=== PATIENT | male | born 1985 | race Caucasian/White ===

== ENCOUNTER 2022-11-21 17:53 | Emergency (ER) | payer OTHER ==
[2022-11-21] MEDS ORDERED: Lidocaine 1% 10 ML MDV INJECT ONE (18:03)
[2022-11-21] MEDS ORDERED: Diphtheria,Pertussis(Acell),Tetanus Vaccine 0.5 ML Syringe IM ONE (18:18)
== END 2022-11-21 18:35 | disposition home or self-care (01) ==
LOC: VM.ED 17:53
DX: S61.012A Laceration without foreign body of left thumb without damage to nail, initial encounter (principal); I10 Essential (primary) hypertension; Z23 Encounter for immunization; Z72.0 Tobacco use; Z79.899 Other long term (current) drug therapy; Z88.1 Allergy status to other antibiotic agents; Z88.8 Allergy status to other drugs, medicaments and biological substances; W26.8XXA Contact with other sharp object(s), not elsewhere classified, initial encounter; Y92.89 Other specified places as the place of occurrence of the external cause; Y99.0 Civilian activity done for income or pay
CPT/HCPCS: 12001; 90471; 90715; 99282-25; 99283; J3490

== ENCOUNTER 2023-04-30 14:09 | Emergency (ER) | payer SELFPAY ==
[2023-04-30] MEDS ORDERED: Ketorolac 30 MG/ML SDV IM ONE (15:46)
== END 2023-04-30 16:11 | disposition home or self-care (01) ==
LOC: VM.ED 14:09
DX: S16.1XXA Strain of muscle, fascia and tendon at neck level, initial encounter (principal); S00.83XA Contusion of other part of head, initial encounter; F17.210 Nicotine dependence, cigarettes, uncomplicated; I10 Essential (primary) hypertension; Z79.899 Other long term (current) drug therapy; Z88.1 Allergy status to other antibiotic agents; Z88.8 Allergy status to other drugs, medicaments and biological substances; W20.8XXA Other cause of strike by thrown, projected or falling object, initial encounter; Y92.59 Other trade areas as the place of occurrence of the external cause
CPT/HCPCS: 70450; 72125; 96372; 99283; 99284; J1885

== ENCOUNTER 2023-12-08 13:29 | Emergency (ER) | payer OTHER ==
[2023-12-08 14:24] LABS: BASOPHILS PERCENT AUTO 0.3 % (0.2-1.2); EOSINOPHILS ABSOLUTE AUTO 0.2 x10^3/uL (0.0-0.5); HEMATOCRIT 43.2 % (40.0-52.0); HEMOGLOBIN 14.7 g/dL (14.0-18.0); IMMATURE GRAN ABSOLUTE AUTO 0.02 x10^3/uL (0.00-0.07); LYMPHOCYTES ABSOLUTE AUTO 3.5 x10^3/uL (1.0-4.8); MEAN CORPUSCULAR HEMOGLOBIN 27.2 pg (26.0-32.0); MONOCYTES ABSOLUTE AUTO 1.1 x10^3/uL (0.0-0.8); MONOCYTES PERCENT AUTO 7.6 % (2.0-11.0); NEUTROPHILS ABSOLUTE AUTO 10.2 x10^3/uL (1.8-7.7); PLATELET COUNT,PLT 295 x10^3/uL (130-400)
[2023-12-08 14:44] LABS: A/G RATIO 1.26; ALANINE AMINOTRANSFERASE,ALT 28 U/L (16-63); ALBUMIN 4.4 g/dL (3.4-5.0); ALKALINE PHOSPHATASE 108 U/L (46-116); ANION GAP 15.8 mmol/L (5-15); ASPARTATE AMNIOTRANSFERASE,AST 21 U/L (15-37); BILIRUBIN TOTAL 0.8 mg/dL (0.2-1.0); BLOOD UREA NITROGEN,BUN 13 mg/dL (7-18); CALCIUM 10.5 mg/dL (8.5-10.1); CARBON DIOXIDE,CO2 27 mmol/L (21-32); CHLORIDE,CL 103 mmol/L (98-107); ESTIMATED GFR 98 mL/min (>=60); GLUCOSE RANDOM 93 mg/dL (70-99); POTASSIUM,K 3.8 mmol/L (3.5-5.1); PROTEIN TOTAL,TP 7.9 g/dL (6.4-8.2); SODIUM,NA 142 mmol/L (136-145)
[2023-12-08] MEDS: Lactated Ringers 1,000 ML IV ONE (19:45)
[2023-12-09] MEDS: Acetaminophen 500 MG Tab PO ONE (00:06)
== END 2023-12-09 01:45 | disposition home or self-care (01) ==
LOC: VM.ED 13:29
DX: R53.83 Other fatigue (principal)
CPT/HCPCS: 36415; 70450; 80053; 85025; 99284; A9270; J7120

== ENCOUNTER 2023-12-09 13:59 | Emergency (ER) | payer OTHER ==
[2023-12-09 15:23] LABS: BASOPHILS PERCENT AUTO 0.2 % (0.2-1.2); EOSINOPHILS ABSOLUTE AUTO 0.2 x10^3/uL (0.0-0.5); EOSINOPHILS PERCENT AUTO 1.8 % (0.0-4.0); HEMATOCRIT 47.5 % (40.0-52.0); HEMOGLOBIN 15.8 g/dL (14.0-18.0); IMMATURE GRAN ABSOLUTE AUTO 0.01 x10^3/uL (0.00-0.07); LYMPHOCYTES ABSOLUTE AUTO 3.2 x10^3/uL (1.0-4.8); LYMPHOCYTES PERCENT AUTO 36.5 % (25.0-50.0); MEAN CORPUSCULAR HEMOGLOBIN 27.1 pg (26.0-32.0); MEAN CORPUSCULAR HGB CONC 33.3 g/dL (32.0-36.0); MEAN CORPUSCULAR VOLUME 81.6 fL (78.0-93.0); MONOCYTES ABSOLUTE AUTO 0.8 x10^3/uL (0.0-0.8); MONOCYTES PERCENT AUTO 9.1 % (2.0-11.0); NEUTROPHILS ABSOLUTE AUTO 4.6 x10^3/uL (1.8-7.7); NEUTROPHILS PERCENT AUTO 52.3 % (50.0-80.0); PLATELET COUNT,PLT 313 x10^3/uL (130-400); RED BLOOD CELL COUNT 5.82 x10^6/uL (4.5-6.0); WHITE BLOOD CELL COUNT,WBC 8.9 x10^3/uL (4.0-10.0)
[2023-12-09 15:32] LABS: AMPHETAMINES SCREEN, URINE POSITIVE (NEGATIVE); BARBITURATE SCREEN,URINE NEGATIVE (NEGATIVE); BENZODIAZEPINES SCREEN,URINE POSITIVE (NEGATIVE); BUPRENORPHINE SCREEN,URINE NEGATIVE (NEGATIVE); COCAINE METABOLITES,URINE NEGATIVE (NEGATIVE); METHADONE SCREEN, URINE NEGATIVE (NEGATIVE); METHAMPHETAMINE SCREEN, URINE POSITIVE (NEGATIVE); OXYCODONE SCREEN,URINE NEGATIVE (NEGATIVE); PCP SCREEN,URINE NEGATIVE (NEGATIVE); THC SCREEN,URINE 50 NG/ML POSITIVE (NEGATIVE)
[2023-12-09 15:42] LABS: A/G RATIO 1.08; ALANINE AMINOTRANSFERASE,ALT 33 U/L (16-63); ALBUMIN 4.3 g/dL (3.4-5.0); ALKALINE PHOSPHATASE 114 U/L (46-116); ASPARTATE AMNIOTRANSFERASE,AST 28 U/L (15-37); BILIRUBIN TOTAL 0.6 mg/dL (0.2-1.0); BLOOD UREA NITROGEN,BUN 8 mg/dL (7-18); CALCIUM 10.7 mg/dL (8.5-10.1); CARBON DIOXIDE,CO2 32 mmol/L (21-32); CHLORIDE,CL 106 mmol/L (98-107); CREATININE 0.9 mg/dL (0.70-1.30); EST CRCL DRUG DOSING (CG) 119.75 mL/min; GLUCOSE RANDOM 106 mg/dL (70-99); PROTEIN TOTAL,TP 8.3 g/dL (6.4-8.2); SODIUM,NA 145 mmol/L (136-145)
[2023-12-09 15:46] LABS: ESTIMATED GFR 111 mL/min (>=60)
[2023-12-09 15:52] LABS: ETHANOL BLOOD MEDICAL < 3 mg/dL (0-3)
[2023-12-09 15:54] LABS: ACETAMINOPHEN 5 ug/ml (10-30)
== END 2023-12-09 16:25 | disposition other institution (70) ==
LOC: VM.ED 13:59
DX: T42.4X1A Poisoning by benzodiazepines, accidental (unintentional), initial encounter (principal); T42.6X2A Poisoning by other antiepileptic and sedative-hypnotic drugs, intentional self-harm, initial encounter; F32.A Depression, unspecified; F19.20 Other psychoactive substance dependence, uncomplicated; I10 Essential (primary) hypertension; Z88.1 Allergy status to other antibiotic agents; Z88.8 Allergy status to other drugs, medicaments and biological substances; Z79.899 Other long term (current) drug therapy
CPT/HCPCS: 36415; 80053; 80143; 80179; 80305-QW; 80307; 85025; 93005; 99284

== ENCOUNTER 2023-12-10 18:37 | Emergency (ER) | payer OTHER, MEDICAID ==
[2023-12-10] MEDS: Acetaminophen 500 MG Tab PO ONE (21:30)
[2023-12-10] MEDS: Ibuprofen 200 MG Tab PO ONE (21:30)
== END 2023-12-10 21:18 | disposition home or self-care (01) ==
LOC: VM.ED 18:37
DX: S16.1XXA Strain of muscle, fascia and tendon at neck level, initial encounter (principal); S80.212A Abrasion, left knee, initial encounter; S80.211A Abrasion, right knee, initial encounter; M79.631 Pain in right forearm; I10 Essential (primary) hypertension; Z79.899 Other long term (current) drug therapy; Z88.1 Allergy status to other antibiotic agents; Z88.8 Allergy status to other drugs, medicaments and biological substances; W10.9XXA Fall (on) (from) unspecified stairs and steps, initial encounter
CPT/HCPCS: 72125; 73090-RT; 73110-RT; 73130-RT; 73562-RT; 99284

== ENCOUNTER 2024-02-04 19:21 | Emergency (ER) | payer OTHER, MEDICAID ==
[2024-02-04] MEDS: Ketorolac 30 MG/ML SDV IM ONE (20:30)
[2024-02-04] MEDS: Baclofen 10 MG Tab PO ONE (20:36)
== END 2024-02-04 20:46 | disposition home or self-care (01) ==
LOC: VM.ED 19:21
DX: M54.50 Low back pain, unspecified (principal); R50.9 Fever, unspecified; G89.29 Other chronic pain; I10 Essential (primary) hypertension; Z79.899 Other long term (current) drug therapy; Z88.1 Allergy status to other antibiotic agents; Z88.8 Allergy status to other drugs, medicaments and biological substances
CPT/HCPCS: 96372; 99283; A9270; J1885; 99284

== ENCOUNTER 2024-02-13 16:20 | Emergency (ER) | payer OTHER, MEDICAID ==
[2024-02-13] MEDS ORDERED: Sodium Chloride 0.9% 10 ML Syringe FLUSH PRN (16:33)
[2024-02-13] MEDS: HYDROmorphone 0.5 MG/0.5 ML Syringe IVPUSH ONE (16:41)
[2024-02-13] MEDS: Lactated Ringers 1,000 ML IV ONE (16:41)
[2024-02-13 16:46] LABS: BASOPHILS PERCENT AUTO 0.1 % (0.2-1.2); HEMOGLOBIN 14.1 g/dL (14.0-18.0); IMMATURE GRAN ABSOLUTE AUTO 0.04 x10^3/uL (0.00-0.07); LYMPHOCYTES ABSOLUTE AUTO 1.6 x10^3/uL (1.0-4.8); LYMPHOCYTES PERCENT AUTO 11.9 % (25.0-50.0); MEAN CORPUSCULAR HEMOGLOBIN 27.4 pg (26.0-32.0); MEAN CORPUSCULAR HGB CONC 33.6 g/dL (32.0-36.0); MEAN CORPUSCULAR VOLUME 81.6 fL (78.0-93.0); MONOCYTES ABSOLUTE AUTO 0.4 x10^3/uL (0.0-0.8); MONOCYTES PERCENT AUTO 3.2 % (2.0-11.0); NEUTROPHILS ABSOLUTE AUTO 11.5 x10^3/uL (1.8-7.7); NEUTROPHILS PERCENT AUTO 84.5 % (50.0-80.0); PLATELET COUNT,PLT 305 x10^3/uL (130-400); RED BLOOD CELL COUNT 5.15 x10^6/uL (4.5-6.0); WHITE BLOOD CELL COUNT,WBC 13.6 x10^3/uL (4.0-10.0)
[2024-02-13 16:48] VITALS: BP 127/85; PULSE 96
[2024-02-13 17:02] LABS: A/G RATIO 1.21; ALANINE AMINOTRANSFERASE,ALT 22 U/L (16-63); ALKALINE PHOSPHATASE 101 U/L (46-116); ASPARTATE AMNIOTRANSFERASE,AST 13 U/L (15-37); BILIRUBIN TOTAL 0.5 mg/dL (0.2-1.0); BLOOD UREA NITROGEN,BUN 10 mg/dL (7-18); CARBON DIOXIDE,CO2 30 mmol/L (21-32); CHLORIDE,CL 104 mmol/L (98-107); CREATINE KINASE,CK 100 U/L (39-308); CREATININE 1.1 mg/dL (0.70-1.30); GLUCOSE RANDOM 120 mg/dL (70-99); POTASSIUM,K 4.2 mmol/L (3.5-5.1); PROTEIN TOTAL,TP 7.3 g/dL (6.4-8.2); SODIUM,NA 143 mmol/L (136-145)
[2024-02-13 17:05] LABS: ANION GAP 13.2 mmol/L (5-15); C-REACTIVE PROTEIN < 0.50 mg/dL (<=0.50); ESTIMATED GFR 87 mL/min (>=60)
[2024-02-13] MEDS: Ketorolac 15 MG/ML SDV IVPUSH ONE (17:18)
[2024-02-13] MEDS: Take Home: Cyclobenzaprine 10 MG Tab, 4 Tab Pack PO ONE (17:19)
== END 2024-02-13 17:30 | disposition home or self-care (01) ==
LOC: VM.ED 16:20
DX: M54.6 Pain in thoracic spine (principal); G89.29 Other chronic pain; I10 Essential (primary) hypertension; F17.210 Nicotine dependence, cigarettes, uncomplicated; Z79.899 Other long term (current) drug therapy; Z88.1 Allergy status to other antibiotic agents; Z88.8 Allergy status to other drugs, medicaments and biological substances
CPT/HCPCS: 36415; 80053; 82550; 85025; 86140; 96374; 96375; 99284; A9270; J1170; J1885; J3360; J7120

== ENCOUNTER 2024-02-14 16:46 | Emergency (ER) | payer OTHER, MEDICAID ==
[2024-02-14] MEDS: LORazepam 2 MG/ML SDV IM ONE (18:25)
[2024-02-14] MEDS: Ketorolac 30 MG/ML SDV IM ONE (18:26)
== END 2024-02-14 19:23 | disposition home or self-care (01) ==
LOC: VM.ED 16:46
DX: G89.29 Other chronic pain (principal); M54.50 Low back pain, unspecified; I10 Essential (primary) hypertension; Z88.8 Allergy status to other drugs, medicaments and biological substances; Z79.899 Other long term (current) drug therapy
CPT/HCPCS: 96372; 99283; 99284; J1885; J2060

== ENCOUNTER 2024-02-19 18:35 | Emergency (ER) | payer OTHER, MEDICAID ==
[2024-02-19 19:21] LABS: BASOPHILS PERCENT AUTO 0.2 % (0.2-1.2); EOSINOPHILS ABSOLUTE AUTO 0.2 x10^3/uL (0.0-0.5); EOSINOPHILS PERCENT AUTO 1.4 % (0.0-4.0); HEMATOCRIT 41.7 % (40.0-52.0); HEMOGLOBIN 12.8 g/dL (14.0-18.0); IMMATURE GRAN ABSOLUTE AUTO 0.02 x10^3/uL (0.00-0.07); LYMPHOCYTES PERCENT AUTO 17.3 % (25.0-50.0); MEAN CORPUSCULAR HEMOGLOBIN 26.8 pg (26.0-32.0); MEAN CORPUSCULAR HGB CONC 30.7 g/dL (32.0-36.0); MEAN CORPUSCULAR VOLUME 87.2 fL (78.0-93.0); MONOCYTES PERCENT AUTO 8.4 % (2.0-11.0); NEUTROPHILS ABSOLUTE AUTO 8.4 x10^3/uL (1.8-7.7); NEUTROPHILS PERCENT AUTO 72.5 % (50.0-80.0); PLATELET COUNT,PLT 208 x10^3/uL (130-400); RED BLOOD CELL COUNT 4.78 x10^6/uL (4.5-6.0); WHITE BLOOD CELL COUNT,WBC 11.5 x10^3/uL (4.0-10.0)
[2024-02-19 19:36] LABS: A/G RATIO 0.91; ALANINE AMINOTRANSFERASE,ALT 26 U/L (16-63); ALBUMIN 3.2 g/dL (3.4-5.0); ALKALINE PHOSPHATASE 86 U/L (46-116); ASPARTATE AMNIOTRANSFERASE,AST 30 U/L (15-37); BILIRUBIN TOTAL 0.3 mg/dL (0.2-1.0); BLOOD UREA NITROGEN,BUN 9 mg/dL (7-18); CALCIUM 9.4 mg/dL (8.5-10.1); CARBON DIOXIDE,CO2 34 mmol/L (21-32); CHLORIDE,CL 102 mmol/L (98-107); GLUCOSE RANDOM 140 mg/dL (70-99); POTASSIUM,K 4.2 mmol/L (3.5-5.1); PROTEIN TOTAL,TP 6.7 g/dL (6.4-8.2); SODIUM,NA 142 mmol/L (136-145)
[2024-02-19 19:38] LABS: ANION GAP 10.2 mmol/L (5-15); ESTIMATED GFR 98 mL/min (>=60); ETHANOL BLOOD MEDICAL < 3 mg/dL (0-3)
== END 2024-02-19 20:34 ==
LOC: VM.ED 18:35
DX: S06.0X0A Concussion without loss of consciousness, initial encounter (principal); S00.91XA Abrasion of unspecified part of head, initial encounter; I10 Essential (primary) hypertension; F17.210 Nicotine dependence, cigarettes, uncomplicated; Z79.899 Other long term (current) drug therapy; Z88.1 Allergy status to other antibiotic agents; Z88.8 Allergy status to other drugs, medicaments and biological substances; Y09 Assault by unspecified means
CPT/HCPCS: 36415; 70450; 72125; 80053; 80307; 85025; 99284

== ENCOUNTER 2024-02-20 09:51 | Emergency (ER) | payer OTHER, MEDICAID ==
[2024-02-20 10:40] LABS: BASOPHILS PERCENT AUTO 0.1 % (0.2-1.2); EOSINOPHILS ABSOLUTE AUTO 0.1 x10^3/uL (0.0-0.5); EOSINOPHILS PERCENT AUTO 0.3 % (0.0-4.0); HEMATOCRIT 49.9 % (40.0-52.0); HEMOGLOBIN 15.8 g/dL (14.0-18.0); IMMATURE GRAN ABSOLUTE AUTO 0.06 x10^3/uL (0.00-0.07); LYMPHOCYTES ABSOLUTE AUTO 1.5 x10^3/uL (1.0-4.8); LYMPHOCYTES PERCENT AUTO 6.4 % (25.0-50.0); MEAN CORPUSCULAR HEMOGLOBIN 26.9 pg (26.0-32.0); MEAN CORPUSCULAR HGB CONC 31.7 g/dL (32.0-36.0); MEAN CORPUSCULAR VOLUME 84.9 fL (78.0-93.0); MONOCYTES ABSOLUTE AUTO 2.8 x10^3/uL (0.0-0.8); NEUTROPHILS ABSOLUTE AUTO 18.9 x10^3/uL (1.8-7.7); NEUTROPHILS PERCENT AUTO 80.9 % (50.0-80.0); PLATELET COUNT,PLT 207 x10^3/uL (130-400); RED BLOOD CELL COUNT 5.88 x10^6/uL (4.5-6.0)
[2024-02-20 10:44] LABS: WHITE BLOOD CELL COUNT,WBC 23.3 x10^3/uL (4.0-10.0)
[2024-02-20 10:59] LABS: A/G RATIO 0.83; ALANINE AMINOTRANSFERASE,ALT 59 U/L (16-63); ALBUMIN 3.4 g/dL (3.4-5.0); ALKALINE PHOSPHATASE 95 U/L (46-116); ASPARTATE AMNIOTRANSFERASE,AST 194 U/L (15-37); BILIRUBIN TOTAL 0.7 mg/dL (0.2-1.0); BLOOD UREA NITROGEN,BUN 9 mg/dL (7-18); CALCIUM 9.8 mg/dL (8.5-10.1); CARBON DIOXIDE,CO2 34 mmol/L (21-32); CHLORIDE,CL 96 mmol/L (98-107); CREATININE 0.7 mg/dL (0.70-1.30); GLUCOSE RANDOM 109 mg/dL (70-99); PROTEIN TOTAL,TP 7.5 g/dL (6.4-8.2); SODIUM,NA 135 mmol/L (136-145)
[2024-02-20 11:08] LABS: ESTIMATED GFR 119 mL/min (>=60)
[2024-02-20 11:15] LABS: ETHANOL BLOOD MEDICAL < 3 mg/dL (0-3)
[2024-02-20 11:25] LABS: BAND PERCENT MAN 4 % (0-6); LYMPHOCYTES ABSOLUTE MAN 1.4 x10^3/uL (1.0-4.8); LYMPHOCYTES PERCENT MAN 6 % (25-50); MONOCYTES ABSOLUTE MAN 2.1 x10^3/uL (0.0-0.8); MONOCYTES PERCENT MAN 9 % (2-11); NEUTROPHILS ABSOLUTE MAN 19.8 x10^3/uL (1.8-7.7); PLATELET COUNT ESTIMATE ADEQUATE; SEG NEUTROPHILS PERCENT MAN 81 % (50-80); TOXIC GRANULATION 1+ SLIGHT; VACUOLATED NEUTROPHILS 1+ SLIGHT
[2024-02-20 11:31] LABS: AMPHETAMINES SCREEN, URINE NEGATIVE (NEGATIVE); BARBITURATE SCREEN,URINE NEGATIVE (NEGATIVE); BENZODIAZEPINES SCREEN,URINE POSITIVE (NEGATIVE); BUPRENORPHINE SCREEN,URINE NEGATIVE (NEGATIVE); COCAINE METABOLITES,URINE NEGATIVE (NEGATIVE); METHADONE SCREEN, URINE NEGATIVE (NEGATIVE); METHAMPHETAMINE SCREEN, URINE POSITIVE (NEGATIVE); OXYCODONE SCREEN,URINE NEGATIVE (NEGATIVE); PCP SCREEN,URINE NEGATIVE (NEGATIVE)
[2024-02-20 11:32] LABS: THC SCREEN,URINE 50 NG/ML POSITIVE (NEGATIVE)
[2024-02-20 11:37] LABS: BILIRUBIN,URINE LARGE (NEGATIVE); COLOR,URINE AMBER (YELLOW); GLUCOSE,URINE 100 mg/dL (NEGATIVE); KETONES,URINE NEGATIVE (NEGATIVE); LEUKOCYTE ESTERASE,URINE NEGATIVE (NEGATIVE); NITRITE,URINE NEGATIVE (NEGATIVE); OCCULT BLOOD,URINE MODERATE (NEGATIVE); PROTEIN,URINE 100 mg/dL (NEGATIVE); UROBILINOGEN,URINE 0.2 EU/dL (0.2)
[2024-02-20 11:38] LABS: APPEARANCE,URINE SLIGHTLY CLOUDY (CLEAR); BACTERIA,URINE OCCASIONAL /HPF (NOT SEEN); MUCUS,URINE OCCASIONAL /LPF (NOT SEEN); WBC,URINE 0-5 /HPF (NOT SEEN)
[2024-02-20] MEDS: cefTRIAXone 1 GM Vial IVPUSH ONE (12:04)
[2024-02-20] MEDS: Sodium Chloride 0.9% 1,000 ML IV ONE (12:04)
== END 2024-02-20 15:55 ==
LOC: VM.ED 09:51
DX: F12.20 Cannabis dependence, uncomplicated (principal); F13.20 Sedative, hypnotic or anxiolytic dependence, uncomplicated; F11.20 Opioid dependence, uncomplicated; F15.20 Other stimulant dependence, uncomplicated; I10 Essential (primary) hypertension; Z88.0 Allergy status to penicillin; Z79.899 Other long term (current) drug therapy
CPT/HCPCS: 36415; 70450; 71045; 80053; 80305-QW; 80307; 81001; 83605; 85025; 87040; 96361; 96374; 99284; 99285-25; J0696; J7030

== ENCOUNTER 2024-02-26 09:53 | Emergency (ER) | payer OTHER, MEDICAID ==
[2024-02-26 10:20] LABS: BASOPHILS PERCENT AUTO 0.2 % (0.2-1.2); EOSINOPHILS ABSOLUTE AUTO 0.1 x10^3/uL (0.0-0.5); EOSINOPHILS PERCENT AUTO 0.8 % (0.0-4.0); HEMATOCRIT 40.1 % (40.0-52.0); HEMOGLOBIN 13.5 g/dL (14.0-18.0); IMMATURE GRAN ABSOLUTE AUTO 0.16 x10^3/uL (0.00-0.07); LYMPHOCYTES ABSOLUTE AUTO 2.4 x10^3/uL (1.0-4.8); LYMPHOCYTES PERCENT AUTO 18.6 % (25.0-50.0); MEAN CORPUSCULAR HEMOGLOBIN 27.1 pg (26.0-32.0); MEAN CORPUSCULAR HGB CONC 33.7 g/dL (32.0-36.0); MEAN CORPUSCULAR VOLUME 80.5 fL (78.0-93.0); MONOCYTES PERCENT AUTO 7.7 % (2.0-11.0); NEUTROPHILS ABSOLUTE AUTO 9.3 x10^3/uL (1.8-7.7); NEUTROPHILS PERCENT AUTO 71.5 % (50.0-80.0); PLATELET COUNT,PLT 325 x10^3/uL (130-400); RED BLOOD CELL COUNT 4.98 x10^6/uL (4.5-6.0)
[2024-02-26 10:26] LABS: AMPHETAMINES SCREEN, URINE POSITIVE (NEGATIVE); BARBITURATE SCREEN,URINE NEGATIVE (NEGATIVE); BENZODIAZEPINES SCREEN,URINE POSITIVE (NEGATIVE); BUPRENORPHINE SCREEN,URINE NEGATIVE (NEGATIVE); COCAINE METABOLITES,URINE NEGATIVE (NEGATIVE); METHAMPHETAMINE SCREEN, URINE POSITIVE (NEGATIVE)
[2024-02-26 10:27] LABS: METHADONE SCREEN, URINE NEGATIVE (NEGATIVE); OXYCODONE SCREEN,URINE NEGATIVE (NEGATIVE); PCP SCREEN,URINE NEGATIVE (NEGATIVE); THC SCREEN,URINE 50 NG/ML POSITIVE (NEGATIVE)
[2024-02-26 10:47] LABS: A/G RATIO 0.92; ACETAMINOPHEN 0 ug/ml (10-30); ALANINE AMINOTRANSFERASE,ALT 94 U/L (16-63); ALBUMIN 3.3 g/dL (3.4-5.0); ALKALINE PHOSPHATASE 80 U/L (46-116); ANION GAP 13.6 mmol/L (5-15); ASPARTATE AMNIOTRANSFERASE,AST 57 U/L (15-37); BILIRUBIN TOTAL 0.5 mg/dL (0.2-1.0); BLOOD UREA NITROGEN,BUN 7 mg/dL (7-18); CALCIUM 9.8 mg/dL (8.5-10.1); CARBON DIOXIDE,CO2 28 mmol/L (21-32); CHLORIDE,CL 106 mmol/L (98-107); CREATININE 0.8 mg/dL (0.70-1.30); ESTIMATED GFR 115 mL/min (>=60); ETHANOL BLOOD MEDICAL < 3 mg/dL (0-3); GLUCOSE RANDOM 110 mg/dL (70-99); POTASSIUM,K 3.6 mmol/L (3.5-5.1); PROTEIN TOTAL,TP 6.9 g/dL (6.4-8.2); SODIUM,NA 144 mmol/L (136-145); TSH ULTRASENSITIVE 1.028 uIU/mL (0.358-3.74)
== END 2024-02-26 11:05 | disposition home or self-care (01) ==
LOC: VM.ED 09:53
DX: F10.20 Alcohol dependence, uncomplicated (principal); I10 Essential (primary) hypertension; Z79.899 Other long term (current) drug therapy; Z88.1 Allergy status to other antibiotic agents; Z88.8 Allergy status to other drugs, medicaments and biological substances
CPT/HCPCS: 36415; 80053; 80143; 80179; 80305-QW; 80307; 84443; 85025; 99283

== ENCOUNTER 2024-03-15 11:44 | Emergency (ER) | payer OTHER, MEDICAID ==
[2024-03-15] MEDS: Orphenadrine 60 MG/2 ML Inj IM ONE (12:22)
[2024-03-15] MEDS: Ketorolac 30 MG/ML SDV IM ONE (12:24)
== END 2024-03-15 12:36 | disposition home or self-care (01) ==
LOC: VM.ED 11:44
DX: M54.50 Low back pain, unspecified (principal); I10 Essential (primary) hypertension; Z79.899 Other long term (current) drug therapy; Z88.1 Allergy status to other antibiotic agents; Z88.8 Allergy status to other drugs, medicaments and biological substances
CPT/HCPCS: 96372; 99283; J1885; J2360

== ENCOUNTER 2024-04-01 09:28 | Emergency (ER) | payer OTHER, MEDICAID ==
[2024-04-01] MEDS: Ketorolac 30 MG/ML SDV IM ONE (10:43)
== END 2024-04-01 10:57 | disposition home or self-care (01) ==
LOC: VM.ED 09:28
DX: M25.561 Pain in right knee (principal); M25.562 Pain in left knee; I10 Essential (primary) hypertension; F17.210 Nicotine dependence, cigarettes, uncomplicated; Z79.899 Other long term (current) drug therapy; Z88.1 Allergy status to other antibiotic agents; Z88.8 Allergy status to other drugs, medicaments and biological substances
CPT/HCPCS: 73560-LT; 73560-RT; 96372; 99283; J1885

== ENCOUNTER 2024-04-23 12:34 | Emergency (ER) | payer OTHER, MEDICAID ==
[2024-04-23] MEDS: Methocarbamol 500 MG Tab PO ONE (13:14)
== END 2024-04-23 14:51 | disposition home or self-care (01) ==
LOC: VM.ED 12:34
DX: R51.9 Headache, unspecified (principal); Z79.899 Other long term (current) drug therapy; I10 Essential (primary) hypertension
CPT/HCPCS: 99283; A9270

== ENCOUNTER 2024-05-05 15:53 | Emergency (ER) | payer OTHER, MEDICAID ==
[2024-05-05] MEDS: LORazepam 2 MG/ML SDV IM ONE (16:17)
[2024-05-05 16:28] LABS: BASOPHILS ABSOLUTE AUTO 0.1 x10^3/uL (0.0-0.2); BASOPHILS PERCENT AUTO 0.5 % (0.2-1.2); EOSINOPHILS ABSOLUTE AUTO 0.2 x10^3/uL (0.0-0.5); EOSINOPHILS PERCENT AUTO 1.4 % (0.0-4.0); HEMATOCRIT 42.1 % (40.0-52.0); HEMOGLOBIN 14.3 g/dL (14.0-18.0); IMMATURE GRAN ABSOLUTE AUTO 0.06 x10^3/uL (0.00-0.07); LYMPHOCYTES ABSOLUTE AUTO 3.9 x10^3/uL (1.0-4.8); LYMPHOCYTES PERCENT AUTO 30.2 % (25.0-50.0); MEAN CORPUSCULAR HEMOGLOBIN 27.3 pg (26.0-32.0); MEAN CORPUSCULAR VOLUME 80.3 fL (78.0-93.0); MONOCYTES ABSOLUTE AUTO 1.4 x10^3/uL (0.0-0.8); MONOCYTES PERCENT AUTO 11.2 % (2.0-11.0); NEUTROPHILS ABSOLUTE AUTO 7.2 x10^3/uL (1.8-7.7); NEUTROPHILS PERCENT AUTO 56.2 % (50.0-80.0); PLATELET COUNT,PLT 301 x10^3/uL (130-400); RED BLOOD CELL COUNT 5.24 x10^6/uL (4.5-6.0); WHITE BLOOD CELL COUNT,WBC 12.8 x10^3/uL (4.0-10.0)
[2024-05-05 16:59] LABS: A/G RATIO 1.05; ALANINE AMINOTRANSFERASE,ALT 27 U/L (16-63); ALKALINE PHOSPHATASE 100 U/L (46-116); ANION GAP 15.6 mmol/L (5-15); ASPARTATE AMNIOTRANSFERASE,AST 21 U/L (15-37); BILIRUBIN TOTAL 0.6 mg/dL (0.2-1.0); BLOOD UREA NITROGEN,BUN 22 mg/dL (7-18); CALCIUM 9.9 mg/dL (8.5-10.1); CARBON DIOXIDE,CO2 27 mmol/L (21-32); CHLORIDE,CL 101 mmol/L (98-107); CREATININE 1.3 mg/dL (0.70-1.30); ESTIMATED GFR 71 mL/min (>=60); GLUCOSE RANDOM 114 mg/dL (70-99); MAGNESIUM 2.4 mg/dL (1.8-2.4); POTASSIUM,K 4.6 mmol/L (3.5-5.1); PROTEIN TOTAL,TP 7.8 g/dL (6.4-8.2); SODIUM,NA 139 mmol/L (136-145); TSH ULTRASENSITIVE 2.809 uIU/mL (0.358-3.74)
[2024-05-05 17:00] LABS: ACETAMINOPHEN 0 ug/ml (10-30); ETHANOL BLOOD MEDICAL < 3 mg/dL (0-3)
[2024-05-05 17:19] LABS: APPEARANCE,URINE CLEAR (CLEAR); BILIRUBIN,URINE NEGATIVE (NEGATIVE); GLUCOSE,URINE NEGATIVE (NEGATIVE); KETONES,URINE NEGATIVE (NEGATIVE); LEUKOCYTE ESTERASE,URINE NEGATIVE (NEGATIVE); NITRITE,URINE NEGATIVE (NEGATIVE); OCCULT BLOOD,URINE NEGATIVE (NEGATIVE); PROTEIN,URINE NEGATIVE (NEGATIVE); UROBILINOGEN,URINE 0.2 EU/dL (0.2)
[2024-05-05 17:23] LABS: AMPHETAMINES SCREEN, URINE POSITIVE (NEGATIVE); COLOR,URINE DARK YELLOW (YELLOW)
[2024-05-05 17:24] LABS: BARBITURATE SCREEN,URINE NEGATIVE (NEGATIVE); BENZODIAZEPINES SCREEN,URINE NEGATIVE (NEGATIVE); BUPRENORPHINE SCREEN,URINE POSITIVE (NEGATIVE); COCAINE METABOLITES,URINE NEGATIVE (NEGATIVE); METHADONE SCREEN, URINE NEGATIVE (NEGATIVE); METHAMPHETAMINE SCREEN, URINE POSITIVE (NEGATIVE); OXYCODONE SCREEN,URINE NEGATIVE (NEGATIVE); PCP SCREEN,URINE NEGATIVE (NEGATIVE); THC SCREEN,URINE 50 NG/ML POSITIVE (NEGATIVE)
== END 2024-05-05 18:28 ==
LOC: VM.ED 15:53
DX: F15.159 Other stimulant abuse with stimulant-induced psychotic disorder, unspecified (principal); F15.10 Other stimulant abuse, uncomplicated; I10 Essential (primary) hypertension; Z79.899 Other long term (current) drug therapy; Z88.1 Allergy status to other antibiotic agents; Z88.8 Allergy status to other drugs, medicaments and biological substances
CPT/HCPCS: 36415; 80053; 80143; 80179; 80305-QW; 80307; 81003; 82140; 83735; 84443; 85025; 96372; 99284; 99285; J2060

== ENCOUNTER 2024-05-18 15:14 | Emergency (ER) | payer OTHER, MEDICAID ==
[2024-05-18 16:01] LABS: APPEARANCE,URINE CLEAR (CLEAR); BILIRUBIN,URINE NEGATIVE (NEGATIVE); COLOR,URINE YELLOW (YELLOW); GLUCOSE,URINE NEGATIVE (NEGATIVE); KETONES,URINE NEGATIVE (NEGATIVE); LEUKOCYTE ESTERASE,URINE NEGATIVE (NEGATIVE); NITRITE,URINE NEGATIVE (NEGATIVE); OCCULT BLOOD,URINE NEGATIVE (NEGATIVE); PROTEIN,URINE NEGATIVE (NEGATIVE); UROBILINOGEN,URINE 0.2 EU/dL (0.2)
[2024-05-18 16:04] LABS: AMPHETAMINES SCREEN, URINE POSITIVE (NEGATIVE)
[2024-05-18 16:05] LABS: BARBITURATE SCREEN,URINE NEGATIVE (NEGATIVE); BENZODIAZEPINES SCREEN,URINE NEGATIVE (NEGATIVE); BUPRENORPHINE SCREEN,URINE POSITIVE (NEGATIVE); COCAINE METABOLITES,URINE NEGATIVE (NEGATIVE); METHADONE SCREEN, URINE NEGATIVE (NEGATIVE); METHAMPHETAMINE SCREEN, URINE POSITIVE (NEGATIVE); OXYCODONE SCREEN,URINE NEGATIVE (NEGATIVE); PCP SCREEN,URINE NEGATIVE (NEGATIVE); THC SCREEN,URINE 50 NG/ML POSITIVE (NEGATIVE)
[2024-05-18 16:09] LABS: BASOPHILS ABSOLUTE AUTO 0.1 x10^3/uL (0.0-0.2); BASOPHILS PERCENT AUTO 0.6 % (0.2-1.2); EOSINOPHILS ABSOLUTE AUTO 0.2 x10^3/uL (0.0-0.5); EOSINOPHILS PERCENT AUTO 2.3 % (0.0-4.0); HEMATOCRIT 38.4 % (40.0-52.0); HEMOGLOBIN 12.7 g/dL (14.0-18.0); IMMATURE GRAN ABSOLUTE AUTO 0.02 x10^3/uL (0.00-0.07); LYMPHOCYTES ABSOLUTE AUTO 3.3 x10^3/uL (1.0-4.8); LYMPHOCYTES PERCENT AUTO 35.8 % (25.0-50.0); MEAN CORPUSCULAR HEMOGLOBIN 27.3 pg (26.0-32.0); MEAN CORPUSCULAR HGB CONC 33.1 g/dL (32.0-36.0); MEAN CORPUSCULAR VOLUME 82.4 fL (78.0-93.0); MONOCYTES ABSOLUTE AUTO 0.8 x10^3/uL (0.0-0.8); MONOCYTES PERCENT AUTO 8.7 % (2.0-11.0); NEUTROPHILS ABSOLUTE AUTO 4.9 x10^3/uL (1.8-7.7); NEUTROPHILS PERCENT AUTO 52.4 % (50.0-80.0); PLATELET COUNT,PLT 260 x10^3/uL (130-400); RED BLOOD CELL COUNT 4.66 x10^6/uL (4.5-6.0); WHITE BLOOD CELL COUNT,WBC 9.3 x10^3/uL (4.0-10.0)
[2024-05-18 16:37] LABS: A/G RATIO 1.06; ACETAMINOPHEN 0 ug/ml (10-30); ALANINE AMINOTRANSFERASE,ALT 25 U/L (16-63); ALBUMIN 3.6 g/dL (3.4-5.0); ALKALINE PHOSPHATASE 81 U/L (46-116); ASPARTATE AMNIOTRANSFERASE,AST 21 U/L (15-37); BILIRUBIN TOTAL 0.3 mg/dL (0.2-1.0); BLOOD UREA NITROGEN,BUN 15 mg/dL (7-18); C-REACTIVE PROTEIN 1.11 mg/dL (<=0.50); CALCIUM 9.9 mg/dL (8.5-10.1); CARBON DIOXIDE,CO2 33 mmol/L (21-32); CHLORIDE,CL 103 mmol/L (98-107); ESTIMATED GFR 98 mL/min (>=60); ETHANOL BLOOD MEDICAL < 3 mg/dL (0-3); GLUCOSE RANDOM 83 mg/dL (70-99); PHOSPHORUS 2.8 mg/dL (2.6-4.7); SODIUM,NA 141 mmol/L (136-145); TSH ULTRASENSITIVE 2.207 uIU/mL (0.358-3.74)
== END 2024-05-18 17:10 | disposition home or self-care (01) ==
LOC: VM.ED 15:14
DX: F15.10 Other stimulant abuse, uncomplicated (principal); I10 Essential (primary) hypertension; Z79.899 Other long term (current) drug therapy; Z79.1 Long term (current) use of non-steroidal anti-inflammatories (NSAID); Z88.1 Allergy status to other antibiotic agents; Z88.8 Allergy status to other drugs, medicaments and biological substances
CPT/HCPCS: 36415; 80053; 80143; 80179; 80305-QW; 80307; 81003; 83735; 84100; 84443; 85025; 86140; 99283

== ENCOUNTER 2024-06-22 20:07 | Emergency (ER) | payer OTHER ==
[2024-06-22] MEDS: Ketorolac 30 MG/ML SDV IM ONE (20:35)
[2024-06-22] MEDS: Orphenadrine 60 MG/2 ML Inj IM ONE (20:36)
== END 2024-06-22 21:40 | disposition home or self-care (01) ==
LOC: VM.ED 20:07
DX: M54.50 Low back pain, unspecified (principal); I10 Essential (primary) hypertension; F17.210 Nicotine dependence, cigarettes, uncomplicated; Z79.1 Long term (current) use of non-steroidal anti-inflammatories (NSAID); Z79.899 Other long term (current) drug therapy; Z88.1 Allergy status to other antibiotic agents; Z88.8 Allergy status to other drugs, medicaments and biological substances
CPT/HCPCS: 72100; 96372; 99283; J1885; J2360

== ENCOUNTER 2024-08-06 10:28 | Emergency (ER) | payer MEDICAID ==
[2024-08-06 11:01] LABS: AMPHETAMINES SCREEN, URINE POSITIVE (NEGATIVE); BARBITURATE SCREEN,URINE NEGATIVE (NEGATIVE); BENZODIAZEPINES SCREEN,URINE POSITIVE (NEGATIVE); BUPRENORPHINE SCREEN,URINE POSITIVE (NEGATIVE); COCAINE METABOLITES,URINE NEGATIVE (NEGATIVE); METHADONE SCREEN, URINE NEGATIVE (NEGATIVE); METHAMPHETAMINE SCREEN, URINE POSITIVE (NEGATIVE); THC SCREEN,URINE 50 NG/ML POSITIVE (NEGATIVE)
[2024-08-06 11:02] LABS: OXYCODONE SCREEN,URINE NEGATIVE (NEGATIVE); PCP SCREEN,URINE NEGATIVE (NEGATIVE)
== END 2024-08-06 12:05 | disposition home or self-care (01) ==
LOC: VM.ED 10:28
DX: F15.13 Other stimulant abuse with withdrawal (principal); I10 Essential (primary) hypertension; Z88.1 Allergy status to other antibiotic agents; Z88.8 Allergy status to other drugs, medicaments and biological substances; Z79.899 Other long term (current) drug therapy
CPT/HCPCS: 80305-QW; 99283

== ENCOUNTER 2024-08-22 07:02 | Emergency (ER) | payer MEDICAID ==
[2024-08-22] MEDS: Cyclobenzaprine 10 MG Tab PO ONE (07:43)
[2024-08-22 08:05] LABS: APPEARANCE,URINE CLEAR (CLEAR); BILIRUBIN,URINE NEGATIVE (NEGATIVE); COLOR,URINE YELLOW (YELLOW); GLUCOSE,URINE NEGATIVE (NEGATIVE); KETONES,URINE NEGATIVE (NEGATIVE); LEUKOCYTE ESTERASE,URINE NEGATIVE (NEGATIVE); NITRITE,URINE NEGATIVE (NEGATIVE); OCCULT BLOOD,URINE NEGATIVE (NEGATIVE); PROTEIN,URINE NEGATIVE (NEGATIVE); UROBILINOGEN,URINE 0.2 EU/dL (0.2)
[2024-08-22 08:06] LABS: HEMATOCRIT 41.5 % (40.0-52.0); HEMOGLOBIN 13.6 g/dL (14.0-18.0); MEAN CORPUSCULAR HEMOGLOBIN 26.4 pg (26.0-32.0); MEAN CORPUSCULAR HGB CONC 32.8 g/dL (32.0-36.0); MEAN CORPUSCULAR VOLUME 80.4 fL (78.0-93.0); PLATELET COUNT,PLT 262 x10^3/uL (130-400); RED BLOOD CELL COUNT 5.16 x10^6/uL (4.5-6.0)
[2024-08-22 08:09] LABS: AMPHETAMINES SCREEN, URINE POSITIVE (NEGATIVE); BARBITURATE SCREEN,URINE NEGATIVE (NEGATIVE); BENZODIAZEPINES SCREEN,URINE POSITIVE (NEGATIVE); BUPRENORPHINE SCREEN,URINE POSITIVE (NEGATIVE)
[2024-08-22 08:10] LABS: COCAINE METABOLITES,URINE NEGATIVE (NEGATIVE); METHADONE SCREEN, URINE NEGATIVE (NEGATIVE); METHAMPHETAMINE SCREEN, URINE POSITIVE (NEGATIVE); OXYCODONE SCREEN,URINE NEGATIVE (NEGATIVE); PCP SCREEN,URINE NEGATIVE (NEGATIVE); THC SCREEN,URINE 50 NG/ML POSITIVE (NEGATIVE)
[2024-08-22 08:25] LABS: LYMPHOCYTES ABSOLUTE MAN 1.8 x10^3/uL (1.0-4.8); LYMPHOCYTES PERCENT MAN 8 % (25-50); MONOCYTES ABSOLUTE MAN 1.6 x10^3/uL (0.0-0.8); MONOCYTES PERCENT MAN 7 % (2-11); NEUTROPHILS ABSOLUTE MAN 19.6 x10^3/uL (1.8-7.7); SEG NEUTROPHILS PERCENT MAN 85 % (50-80)
[2024-08-22 08:28] LABS: ALANINE AMINOTRANSFERASE,ALT 34 U/L (16-63); ALBUMIN 3.8 g/dL (3.4-5.0); ALKALINE PHOSPHATASE 82 U/L (46-116); ASPARTATE AMNIOTRANSFERASE,AST 15 U/L (15-37); BILIRUBIN TOTAL 0.2 mg/dL (0.2-1.0); BLOOD UREA NITROGEN,BUN 12 mg/dL (7-18); CALCIUM 10.2 mg/dL (8.5-10.1); CARBON DIOXIDE,CO2 31 mmol/L (21-32); CHLORIDE,CL 99 mmol/L (98-107); CREATININE 0.9 mg/dL (0.70-1.30); EST CRCL DRUG DOSING (CG) 119.75 mL/min; GLUCOSE RANDOM 119 mg/dL (70-99); POTASSIUM,K 4.4 mmol/L (3.5-5.1); PROTEIN TOTAL,TP 7.6 g/dL (6.4-8.2); SODIUM,NA 138 mmol/L (136-145); TSH ULTRASENSITIVE 0.073 uIU/mL (0.358-3.74)
[2024-08-22 08:29] LABS: ACETAMINOPHEN 0 ug/ml (10-30); ANION GAP 12.4 mmol/L (5-15); ESTIMATED GFR 111 mL/min (>=60); ETHANOL BLOOD MEDICAL < 3 mg/dL (0-3)
== END 2024-08-22 12:45 | disposition home or self-care (01) ==
LOC: VM.ED 07:02 → SUPCPDRO 07:02 → VM.ED 12:45
DX: F32.A Depression, unspecified (principal); F13.10 Sedative, hypnotic or anxiolytic abuse, uncomplicated; I10 Essential (primary) hypertension; F17.210 Nicotine dependence, cigarettes, uncomplicated; Z88.1 Allergy status to other antibiotic agents; Z88.8 Allergy status to other drugs, medicaments and biological substances; Z79.899 Other long term (current) drug therapy
CPT/HCPCS: 36415; 80053; 80143; 80179; 80305-QW; 80307; 81003; 84443; 85025; 99284; A9270-GY

== ENCOUNTER 2024-10-14 15:36 | Emergency (ER) | payer MEDICAID ==
[2024-10-14] MEDS ORDERED: Sodium Chloride 0.9% 10 ML Syringe FLUSH PRN (15:58)
[2024-10-14] MEDS ORDERED: Sodium Chloride 0.9% 1,000 ML IV ONE (15:58)
[2024-10-14 16:22] LABS: AMPHETAMINES SCREEN, URINE NEGATIVE (NEGATIVE); BARBITURATE SCREEN,URINE NEGATIVE (NEGATIVE); BENZODIAZEPINES SCREEN,URINE NEGATIVE (NEGATIVE); COCAINE METABOLITES,URINE NEGATIVE (NEGATIVE)
[2024-10-14 16:23] LABS: METHADONE SCREEN, URINE NEGATIVE (NEGATIVE); METHAMPHETAMINE SCREEN, URINE NEGATIVE (NEGATIVE); OXYCODONE SCREEN,URINE NEGATIVE (NEGATIVE); PCP SCREEN,URINE NEGATIVE (NEGATIVE); THC SCREEN,URINE 50 NG/ML POSITIVE (NEGATIVE)
[2024-10-14 16:24] LABS: BUPRENORPHINE SCREEN,URINE POSITIVE (NEGATIVE)
[2024-10-14 17:06] VITALS: BP 119/81; PULSE 130
== END 2024-10-14 16:30 | disposition left against medical advice (07) ==
LOC: VM.ED 15:36
DX: F19.10 Other psychoactive substance abuse, uncomplicated (principal); I10 Essential (primary) hypertension; Z88.1 Allergy status to other antibiotic agents; Z88.8 Allergy status to other drugs, medicaments and biological substances; Z79.899 Other long term (current) drug therapy
CPT/HCPCS: 80305-QW; 99283; 99284

== ENCOUNTER 2024-11-26 07:47 | Emergency (ER) | payer BC, MEDICAID | END 2024-11-26 10:45 | disposition home or self-care (01) | LOC: VM.ED 07:47 | DX: Z72.0 Tobacco use (principal); I10 Essential (primary) hypertension; Z88.1 Allergy status to other antibiotic agents; Z88.8 Allergy status to other drugs, medicaments and biological substances; Z79.899 Other long term (current) drug therapy | CPT/HCPCS: 99284 ==

== ENCOUNTER 2024-11-27 21:49 | Emergency (ER) | payer MEDICAID ==
[2024-11-27 22:40] LABS: BASOPHILS PERCENT AUTO 0.4 % (0.2-1.2); EOSINOPHILS ABSOLUTE AUTO 0.1 x10^3/uL (0.0-0.5); EOSINOPHILS PERCENT AUTO 1.3 % (0.0-4.0); HEMATOCRIT 36.1 % (40.0-52.0); IMMATURE GRAN ABSOLUTE AUTO 0.01 x10^3/uL (0.00-0.07); LYMPHOCYTES ABSOLUTE AUTO 3.4 x10^3/uL (1.0-4.8); LYMPHOCYTES PERCENT AUTO 34.4 % (25.0-50.0); MEAN CORPUSCULAR HEMOGLOBIN 26.5 pg (26.0-32.0); MEAN CORPUSCULAR HGB CONC 33.2 g/dL (32.0-36.0); MEAN CORPUSCULAR VOLUME 79.7 fL (78.0-93.0); MONOCYTES ABSOLUTE AUTO 0.9 x10^3/uL (0.0-0.8); MONOCYTES PERCENT AUTO 9.1 % (2.0-11.0); NEUTROPHILS ABSOLUTE AUTO 5.5 x10^3/uL (1.8-7.7); NEUTROPHILS PERCENT AUTO 54.7 % (50.0-80.0); PLATELET COUNT,PLT 268 x10^3/uL (130-400); RED BLOOD CELL COUNT 4.53 x10^6/uL (4.5-6.0)
[2024-11-27 23:13] LABS: A/G RATIO 1.12; ALANINE AMINOTRANSFERASE,ALT 39 U/L (16-63); ALBUMIN 3.8 g/dL (3.4-5.0); ALKALINE PHOSPHATASE 82 U/L (46-116); ASPARTATE AMNIOTRANSFERASE,AST 31 U/L (15-37); BILIRUBIN TOTAL 0.5 mg/dL (0.2-1.0); BLOOD UREA NITROGEN,BUN 12 mg/dL (7-18); CALCIUM 9.9 mg/dL (8.5-10.1); CARBON DIOXIDE,CO2 28 mmol/L (21-32); CHLORIDE,CL 105 mmol/L (98-107); CREATININE 0.9 mg/dL (0.70-1.30); ETHANOL BLOOD MEDICAL 4 mg/dL (0-3); GLUCOSE RANDOM 99 mg/dL (70-99); POTASSIUM,K 3.5 mmol/L (3.5-5.1); PROTEIN TOTAL,TP 7.2 g/dL (6.4-8.2); SODIUM,NA 143 mmol/L (136-145)
[2024-11-27 23:34] LABS: ACETAMINOPHEN 0 ug/ml (10-30); ANION GAP 13.5 mmol/L (5-15); ESTIMATED GFR 110 mL/min (>=60)
[2024-11-27 23:43] LABS: APPEARANCE,URINE CLEAR (CLEAR); BILIRUBIN,URINE NEGATIVE (NEGATIVE); COLOR,URINE YELLOW (YELLOW); GLUCOSE,URINE NEGATIVE (NEGATIVE); LEUKOCYTE ESTERASE,URINE NEGATIVE (NEGATIVE); NITRITE,URINE NEGATIVE (NEGATIVE); OCCULT BLOOD,URINE NEGATIVE (NEGATIVE); PH,URINE 5.5 (5.0-8.0); UROBILINOGEN,URINE 0.2 EU/dL (0.2)
[2024-11-27 23:51] LABS: AMPHETAMINES SCREEN, URINE POSITIVE (NEGATIVE)
[2024-11-27 23:52] LABS: BARBITURATE SCREEN,URINE NEGATIVE (NEGATIVE); BUPRENORPHINE SCREEN,URINE NEGATIVE (NEGATIVE)
[2024-11-27 23:53] LABS: BENZODIAZEPINES SCREEN,URINE POSITIVE (NEGATIVE); COCAINE METABOLITES,URINE NEGATIVE (NEGATIVE); METHADONE SCREEN, URINE POSITIVE (NEGATIVE); METHAMPHETAMINE SCREEN, URINE POSITIVE (NEGATIVE)
[2024-11-27 23:54] LABS: OXYCODONE SCREEN,URINE NEGATIVE (NEGATIVE); PCP SCREEN,URINE NEGATIVE (NEGATIVE); THC SCREEN,URINE 50 NG/ML POSITIVE (NEGATIVE)
[2024-11-28 01:07] LABS: BACTERIA,URINE MODERATE /HPF (NOT SEEN); CALCIUM OXALATE CRYSTALS,URINE FEW /HPF (NOT SEEN)
[2024-11-28 01:23] LABS: KETONES,URINE 15 mg/dL (NEGATIVE); PROTEIN,URINE NEGATIVE (NEGATIVE)
[2024-11-28 02:02] LABS: RBC,URINE NOT SEEN /HPF (NOT SEEN); SQUAMOUS EPITHELIAL CELLS,UR NOT SEEN /HPF (NOT SEEN); WBC,URINE NOT SEEN /HPF (NOT SEEN)
== END 2024-11-27 23:17 | disposition left against medical advice (07) ==
LOC: VM.ED 21:49
DX: F19.10 Other psychoactive substance abuse, uncomplicated (principal); I10 Essential (primary) hypertension; Z88.1 Allergy status to other antibiotic agents; Z79.899 Other long term (current) drug therapy
CPT/HCPCS: 36415; 80053; 80143; 80179; 80305-QW; 80307; 81001; 85025; 99283

== ENCOUNTER 2024-12-23 10:22 | Emergency (ER) | payer MEDICAID ==
[2024-12-23 10:57] LABS: BASOPHILS ABSOLUTE AUTO 0.0 x10^3/uL (0.0-0.2); BASOPHILS PERCENT AUTO 0.5 % (0.2-1.2); EOSINOPHILS ABSOLUTE AUTO 0.1 x10^3/uL (0.0-0.5); EOSINOPHILS PERCENT AUTO 1.1 % (0.0-4.0); IMMATURE GRAN ABSOLUTE AUTO 0.01 x10^3/uL (0.00-0.07); IMMATURE GRAN PERCENT AUTO 0.10 % (0.00-0.43); LYMPHOCYTES ABSOLUTE AUTO 2.7 x10^3/uL (1.0-4.8); LYMPHOCYTES PERCENT AUTO 31.9 % (25.0-50.0); MONOCYTES ABSOLUTE AUTO 0.7 x10^3/uL (0.0-0.8); MONOCYTES PERCENT AUTO 8.6 % (2.0-11.0); NEUTROPHILS ABSOLUTE AUTO 4.9 x10^3/uL (1.8-7.7); NEUTROPHILS PERCENT AUTO 57.8 % (50.0-80.0); PLATELET COUNT,PLT 233 x10^3/uL (130-400); RED BLOOD CELL COUNT 5.11 x10^6/uL (4.5-6.0); WHITE BLOOD CELL COUNT,WBC 8.5 x10^3/uL (4.0-10.0)
[2024-12-23 11:12] LABS: A/G RATIO 1.16; ALANINE AMINOTRANSFERASE,ALT 41 U/L (16-63); ASPARTATE AMNIOTRANSFERASE,AST 21 U/L (15-37); BILIRUBIN TOTAL 0.2 mg/dL (0.2-1.0); BLOOD UREA NITROGEN,BUN 7 mg/dL (7-18); CARBON DIOXIDE,CO2 29 mmol/L (21-32); CHLORIDE,CL 104 mmol/L (98-107); CREATININE 1.0 mg/dL (0.70-1.30); EST CRCL DRUG DOSING (CG) 106.70 mL/min; GLUCOSE RANDOM 110 mg/dL (70-99); POTASSIUM,K 3.7 mmol/L (3.5-5.1); PROTEIN TOTAL,TP 6.9 g/dL (6.4-8.2); SODIUM,NA 142 mmol/L (136-145)
[2024-12-23 11:25] LABS: ESTIMATED GFR 97 mL/min (>=60)
[2024-12-23 11:26] LABS: ETHANOL BLOOD MEDICAL < 3 mg/dL (0-3)
[2024-12-23 11:41] LABS: APPEARANCE,URINE CLEAR (CLEAR); GLUCOSE,URINE NEGATIVE (NEGATIVE); OCCULT BLOOD,URINE NEGATIVE (NEGATIVE)
[2024-12-23 11:44] LABS: AMPHETAMINES SCREEN, URINE POSITIVE (NEGATIVE); BUPRENORPHINE SCREEN,URINE NEGATIVE (NEGATIVE); COCAINE METABOLITES,URINE NEGATIVE (NEGATIVE); METHADONE SCREEN, URINE NEGATIVE (NEGATIVE); METHAMPHETAMINE SCREEN, URINE POSITIVE (NEGATIVE); OXYCODONE SCREEN,URINE NEGATIVE (NEGATIVE); PCP SCREEN,URINE NEGATIVE (NEGATIVE); THC SCREEN,URINE 50 NG/ML POSITIVE (NEGATIVE)
== END 2024-12-23 12:42 ==
LOC: VM.ED 10:22
DX: F15.10 Other stimulant abuse, uncomplicated (principal); I10 Essential (primary) hypertension; F17.200 Nicotine dependence, unspecified, uncomplicated; Z88.1 Allergy status to other antibiotic agents; Z88.8 Allergy status to other drugs, medicaments and biological substances; Z79.899 Other long term (current) drug therapy
CPT/HCPCS: 36415; 80053; 80305-QW; 80307; 81003; 83735; 85025; 99284

== ENCOUNTER 2025-02-24 15:56 | Emergency (ER) | payer MEDICAID ==
[2025-02-24 16:20] LABS: BASOPHILS ABSOLUTE AUTO 0.1 x10^3/uL (0.0-0.2); BASOPHILS PERCENT AUTO 0.3 % (0.2-1.2); EOSINOPHILS ABSOLUTE AUTO 0.1 x10^3/uL (0.0-0.5); EOSINOPHILS PERCENT AUTO 0.6 % (0.0-4.0); IMMATURE GRAN ABSOLUTE AUTO 0.03 x10^3/uL (0.00-0.07); IMMATURE GRAN PERCENT AUTO 0.20 % (0.00-0.43); LYMPHOCYTES ABSOLUTE AUTO 3.5 x10^3/uL (1.0-4.8); LYMPHOCYTES PERCENT AUTO 20.6 % (25.0-50.0); MONOCYTES ABSOLUTE AUTO 1.1 x10^3/uL (0.0-0.8); MONOCYTES PERCENT AUTO 6.2 % (2.0-11.0); NEUTROPHILS ABSOLUTE AUTO 12.4 x10^3/uL (1.8-7.7); NEUTROPHILS PERCENT AUTO 72.1 % (50.0-80.0); PLATELET COUNT,PLT 247 x10^3/uL (130-400); RED BLOOD CELL COUNT 5.22 x10^6/uL (4.5-6.0)
[2025-02-24] MEDS: Naloxone 0.4 MG/ML SDV IVPUSH ONE ×3 (16:22→19:12)
[2025-02-24 16:27] LABS: WHITE BLOOD CELL COUNT,WBC 17.1 x10^3/uL (4.0-10.0)
[2025-02-24 16:34] LABS: A/G RATIO 1.26; ALANINE AMINOTRANSFERASE,ALT 26 U/L (16-63); ASPARTATE AMNIOTRANSFERASE,AST 15 U/L (15-37); BILIRUBIN TOTAL 0.2 mg/dL (0.2-1.0); BLOOD UREA NITROGEN,BUN 7 mg/dL (7-18); CARBON DIOXIDE,CO2 30 mmol/L (21-32); CHLORIDE,CL 103 mmol/L (98-107); CREATININE 1.1 mg/dL (0.70-1.30); GLUCOSE RANDOM 95 mg/dL (70-99); POTASSIUM,K 3.9 mmol/L (3.5-5.1); PROTEIN TOTAL,TP 7.0 g/dL (6.4-8.2); SODIUM,NA 141 mmol/L (136-145)
[2025-02-24 16:35] LABS: ESTIMATED GFR 86 mL/min (>=60)
== END 2025-02-24 19:25 | disposition home or self-care (01) ==
LOC: VM.ED 15:56
DX: T40.2X4A Poisoning by other opioids, undetermined, initial encounter (principal); F11.129 Opioid abuse with intoxication, unspecified; I10 Essential (primary) hypertension; Z88.8 Allergy status to other drugs, medicaments and biological substances; Z88.1 Allergy status to other antibiotic agents; Z79.899 Other long term (current) drug therapy
CPT/HCPCS: 70450; 73502; 80053; 85025; 96374; 96376; 99285; J2312; 99284

== ENCOUNTER 2025-04-02 13:02 | Emergency (ER) | payer MEDICAID | END 2025-04-02 14:40 | disposition home or self-care (01) | LOC: VM.ED 13:02 | DX: S00.83XA Contusion of other part of head, initial encounter (principal); I10 Essential (primary) hypertension; Z88.1 Allergy status to other antibiotic agents; Z88.8 Allergy status to other drugs, medicaments and biological substances; Z79.899 Other long term (current) drug therapy; W22.8XXA Striking against or struck by other objects, initial encounter; Y09 Assault by unspecified means | CPT/HCPCS: 70450; 99284 ==

== ENCOUNTER 2025-04-19 10:15 | Emergency (ER) | payer MEDICAID ==
[2025-04-19 10:37] LABS: APPEARANCE,URINE CLEAR (CLEAR); GLUCOSE,URINE NEGATIVE (NEGATIVE); OCCULT BLOOD,URINE NEGATIVE (NEGATIVE)
[2025-04-19] MEDS: Ketorolac 30 MG/ML SDV IM ONE (11:08)
== END 2025-04-19 11:07 | disposition home or self-care (01) ==
LOC: VM.ED 10:15
DX: M54.50 Low back pain, unspecified (principal); I10 Essential (primary) hypertension; F17.200 Nicotine dependence, unspecified, uncomplicated; Z88.1 Allergy status to other antibiotic agents; Z88.8 Allergy status to other drugs, medicaments and biological substances; Z79.899 Other long term (current) drug therapy
CPT/HCPCS: 81003; 96372; 99283; 99284; J1885

== ENCOUNTER 2025-05-03 20:24 | Observation (INO) | payer MEDICAID ==
[2025-05-03] MEDS: Naloxone HCl 4 MG Spray 2 Pack NAS ONE (20:33)
[2025-05-03 21:01] LABS: BASOPHILS ABSOLUTE AUTO 0.0 x10^3/uL (0.0-0.2); BASOPHILS PERCENT AUTO 0.3 % (0.2-1.2); EOSINOPHILS ABSOLUTE AUTO 0.1 x10^3/uL (0.0-0.5); EOSINOPHILS PERCENT AUTO 0.6 % (0.0-4.0); IMMATURE GRAN ABSOLUTE AUTO 0.07 x10^3/uL (0.00-0.07); IMMATURE GRAN PERCENT AUTO 0.50 % (0.00-0.43); LYMPHOCYTES ABSOLUTE AUTO 2.9 x10^3/uL (1.0-4.8); LYMPHOCYTES PERCENT AUTO 20.6 % (25.0-50.0); MONOCYTES ABSOLUTE AUTO 1.6 x10^3/uL (0.0-0.8); MONOCYTES PERCENT AUTO 11.2 % (2.0-11.0); NEUTROPHILS ABSOLUTE AUTO 9.5 x10^3/uL (1.8-7.7); NEUTROPHILS PERCENT AUTO 66.8 % (50.0-80.0); PLATELET COUNT,PLT 216 x10^3/uL (130-400); RED BLOOD CELL COUNT 5.23 x10^6/uL (4.5-6.0)
[2025-05-03] MEDS: Flumazenil 0.1 MG/ML 5 ML MDV IVPUSH ONE (21:02)
[2025-05-03 21:08] LABS: WHITE BLOOD CELL COUNT,WBC 14.2 x10^3/uL (4.0-10.0)
[2025-05-03 21:17] LABS: AMPHETAMINES SCREEN, URINE NEGATIVE (NEGATIVE); BUPRENORPHINE SCREEN,URINE POSITIVE (NEGATIVE); COCAINE METABOLITES,URINE NEGATIVE (NEGATIVE)
[2025-05-03 21:18] LABS: METHADONE SCREEN, URINE NEGATIVE (NEGATIVE); METHAMPHETAMINE SCREEN, URINE NEGATIVE (NEGATIVE); OXYCODONE SCREEN,URINE NEGATIVE (NEGATIVE); PCP SCREEN,URINE NEGATIVE (NEGATIVE); THC SCREEN,URINE 50 NG/ML POSITIVE (NEGATIVE)
[2025-05-03 21:30] LABS: A/G RATIO 0.83; ALANINE AMINOTRANSFERASE,ALT 37 U/L (16-63); ASPARTATE AMNIOTRANSFERASE,AST 34 U/L (15-37); BILIRUBIN TOTAL 0.4 mg/dL (0.2-1.0); BLOOD UREA NITROGEN,BUN 9 mg/dL (7-18); CARBON DIOXIDE,CO2 31 mmol/L (21-32); CHLORIDE,CL 102 mmol/L (98-107); CREATININE 0.9 mg/dL (0.70-1.30); GLUCOSE RANDOM 106 mg/dL (70-99); POTASSIUM,K 5.0 mmol/L (3.5-5.1); PROTEIN TOTAL,TP 7.5 g/dL (6.4-8.2); SODIUM,NA 138 mmol/L (136-145)
[2025-05-03 21:33] LABS: ESTIMATED GFR 110 mL/min (>=60)
[2025-05-03 21:42] LABS: ETHANOL BLOOD MEDICAL < 3 mg/dL (0-3)
[2025-05-03] MEDS ORDERED: Ondansetron 4 MG Tab.DIS PO PRN (23:25)
[2025-05-04 00:17] LABS: BLOOD UREA NITROGEN,BUN 8.0 mg/dL (7-18); CARBON DIOXIDE,CO2 33.0 mmol/L (21-32); CHLORIDE,CL 105.0 mmol/L (98-107); CREATININE 0.7 mg/dL (0.70-1.30); EST CRCL DRUG DOSING (CG) 111.77 mL/min; GLUCOSE RANDOM 106.0 mg/dL (70-99); POTASSIUM,K 4.5 mmol/L (3.5-5.1); SODIUM,NA 140.0 mmol/L (136-145)
[2025-05-04 00:18] LABS: ESTIMATED GFR 119.0 mL/min (>=60)
[2025-05-04 07:07] LABS: BASOPHILS ABSOLUTE AUTO 0.0 x10^3/uL (0.0-0.2); BASOPHILS PERCENT AUTO 0.3 % (0.2-1.2); EOSINOPHILS ABSOLUTE AUTO 0.1 x10^3/uL (0.0-0.5); EOSINOPHILS PERCENT AUTO 0.7 % (0.0-4.0); IMMATURE GRAN ABSOLUTE AUTO 0.04 x10^3/uL (0.00-0.07); IMMATURE GRAN PERCENT AUTO 0.30 % (0.00-0.43); LYMPHOCYTES ABSOLUTE AUTO 2.3 x10^3/uL (1.0-4.8); LYMPHOCYTES PERCENT AUTO 16.7 % (25.0-50.0); MONOCYTES ABSOLUTE AUTO 1.5 x10^3/uL (0.0-0.8); MONOCYTES PERCENT AUTO 10.7 % (2.0-11.0); NEUTROPHILS ABSOLUTE AUTO 9.8 x10^3/uL (1.8-7.7); NEUTROPHILS PERCENT AUTO 71.3 % (50.0-80.0); PLATELET COUNT,PLT 213 x10^3/uL (130-400); RED BLOOD CELL COUNT 4.96 x10^6/uL (4.5-6.0); WHITE BLOOD CELL COUNT,WBC 13.7 x10^3/uL (4.0-10.0)
[2025-05-04] MEDS ORDERED: Naloxone HCl 4 MG Spray 2 Pack NAS PRN (10:07)
[2025-05-04 10:50] VITALS: BP 119/65; PULSE 87
== END 2025-05-04 10:22 | disposition left against medical advice (07) ==
LOC: VM.ED 20:24 → VM.MS 22:12
PROVIDERS: ADMIT Family Medicine; ATTEND Family Medicine
DX: G92.9 Unspecified toxic encephalopathy (principal); F19.20 Other psychoactive substance dependence, uncomplicated; R40.0 Somnolence; T14.91XA Suicide attempt, initial encounter; F41.9 Anxiety disorder, unspecified; G47.00 Insomnia, unspecified; F33.9 Major depressive disorder, recurrent, unspecified; I10 Essential (primary) hypertension; Z59.00 Homelessness unspecified; Z88.8 Allergy status to other drugs, medicaments and biological substances; Z79.899 Other long term (current) drug therapy
CPT/HCPCS: 36415; 71045; 80048; 80053; 80143; 80179; 80305-QW; 80307; 84484; 85025; 93005; 93010; 96361; 96374; 99223-GT; 99285-25; J3490; J7030

== ENCOUNTER 2025-05-04 16:31 | Emergency (ER) | payer MEDICAID | END 2025-05-04 16:45 | disposition left against medical advice (07) | LOC: VM.ED 16:31 | DX: Z53.21 Procedure and treatment not carried out due to patient leaving prior to being seen by health care provider (principal) ==

== ENCOUNTER 2025-05-05 09:06 | Emergency (ER) | payer MEDICAID | END 2025-05-05 10:42 | disposition left against medical advice (07) | LOC: VM.ED 09:06 | DX: R07.89 Other chest pain (principal); I10 Essential (primary) hypertension; F17.200 Nicotine dependence, unspecified, uncomplicated; Z79.899 Other long term (current) drug therapy; Z88.1 Allergy status to other antibiotic agents; Z88.8 Allergy status to other drugs, medicaments and biological substances; Y04.8XXA Assault by other bodily force, initial encounter | CPT/HCPCS: 71101-LT; 99283; 99284 ==

== ENCOUNTER 2025-05-07 04:55 | Emergency (ER) | payer MEDICAID ==
[2025-05-07] MEDS ORDERED: Ketorolac 60 MG/2 ML SDV IM ONE (05:18)
[2025-05-07] MEDS: Ketorolac 30 MG/ML SDV IM ONE (05:39)
== END 2025-05-07 06:05 | disposition home or self-care (01) ==
LOC: VM.ED 04:55
DX: S22.32XD Fracture of one rib, left side, subsequent encounter for fracture with routine healing (principal); I10 Essential (primary) hypertension; Z88.1 Allergy status to other antibiotic agents; Z88.8 Allergy status to other drugs, medicaments and biological substances; Z79.899 Other long term (current) drug therapy; X58.XXXD Exposure to other specified factors, subsequent encounter
CPT/HCPCS: 96372; 99283; J1885

== ENCOUNTER 2025-05-24 14:39 | Emergency (ER) | payer MEDICAID | END 2025-05-24 15:00 | disposition home or self-care (01) | LOC: VM.ED 14:39 | DX: Z02.89 Encounter for other administrative examinations (principal); I10 Essential (primary) hypertension; Z79.899 Other long term (current) drug therapy; Z88.1 Allergy status to other antibiotic agents; Z88.8 Allergy status to other drugs, medicaments and biological substances | CPT/HCPCS: 99283 ==

== ENCOUNTER 2025-05-24 20:43 | Emergency (ER) | payer MEDICAID ==
[2025-05-24 21:03] LABS: BASOPHILS ABSOLUTE AUTO 0.1 x10^3/uL (0.0-0.2); BASOPHILS PERCENT AUTO 0.4 % (0.2-1.2); EOSINOPHILS ABSOLUTE AUTO 0.2 x10^3/uL (0.0-0.5); EOSINOPHILS PERCENT AUTO 1.4 % (0.0-4.0); IMMATURE GRAN ABSOLUTE AUTO 0.02 x10^3/uL (0.00-0.07); IMMATURE GRAN PERCENT AUTO 0.20 % (0.00-0.43); LYMPHOCYTES ABSOLUTE AUTO 3.9 x10^3/uL (1.0-4.8); LYMPHOCYTES PERCENT AUTO 33.5 % (25.0-50.0); MONOCYTES ABSOLUTE AUTO 1.2 x10^3/uL (0.0-0.8); MONOCYTES PERCENT AUTO 10.1 % (2.0-11.0); NEUTROPHILS ABSOLUTE AUTO 6.3 x10^3/uL (1.8-7.7); NEUTROPHILS PERCENT AUTO 54.4 % (50.0-80.0); PLATELET COUNT,PLT 286 x10^3/uL (130-400); RED BLOOD CELL COUNT 5.56 x10^6/uL (4.5-6.0); WHITE BLOOD CELL COUNT,WBC 11.5 x10^3/uL (4.0-10.0)
[2025-05-24 21:07] LABS: AMPHETAMINES SCREEN, URINE NEGATIVE (NEGATIVE); COCAINE METABOLITES,URINE NEGATIVE (NEGATIVE); METHADONE SCREEN, URINE NEGATIVE (NEGATIVE); METHAMPHETAMINE SCREEN, URINE NEGATIVE (NEGATIVE); OXYCODONE SCREEN,URINE NEGATIVE (NEGATIVE)
[2025-05-24 21:08] LABS: BUPRENORPHINE SCREEN,URINE POSITIVE (NEGATIVE); PCP SCREEN,URINE NEGATIVE (NEGATIVE); THC SCREEN,URINE 50 NG/ML POSITIVE (NEGATIVE)
[2025-05-24 21:16] LABS: A/G RATIO 0.80; ALANINE AMINOTRANSFERASE,ALT 40 U/L (16-63); ASPARTATE AMNIOTRANSFERASE,AST 31 U/L (15-37); BILIRUBIN TOTAL 0.5 mg/dL (0.2-1.0); BLOOD UREA NITROGEN,BUN 10 mg/dL (7-18); CARBON DIOXIDE,CO2 30 mmol/L (21-32); CHLORIDE,CL 104 mmol/L (98-107); CREATININE 0.8 mg/dL (0.70-1.30); ESTIMATED GFR 114 mL/min (>=60); GLUCOSE RANDOM 91 mg/dL (70-99); POTASSIUM,K 3.9 mmol/L (3.5-5.1); PROTEIN TOTAL,TP 8.1 g/dL (6.4-8.2); SODIUM,NA 143 mmol/L (136-145)
[2025-05-24 21:17] LABS: ETHANOL BLOOD MEDICAL < 3 mg/dL (0-3)
== END 2025-05-24 22:40 ==
LOC: VM.ED 20:43
DX: S46.912A Strain of unspecified muscle, fascia and tendon at shoulder and upper arm level, left arm, initial encounter (principal); S09.90XA Unspecified injury of head, initial encounter; F12.10 Cannabis abuse, uncomplicated; F11.10 Opioid abuse, uncomplicated; F13.10 Sedative, hypnotic or anxiolytic abuse, uncomplicated; I10 Essential (primary) hypertension; Z88.1 Allergy status to other antibiotic agents; Z88.8 Allergy status to other drugs, medicaments and biological substances; Z79.899 Other long term (current) drug therapy; X58.XXXA Exposure to other specified factors, initial encounter
CPT/HCPCS: 36415; 70450; 73030-LT; 80053; 80305-QW; 80307; 85025; 99284